=== PATIENT | male | born 1930 | race Two or more races ===

== ENCOUNTER 2018-10-15 12:02 | Day surgery (SDC) | payer OTHER, MEDICARE ==
[2018-10-15] MEDS ORDERED: hydrALAzine 20 MG INJ (19:55)
[2018-10-15] MEDS: hydrALAzine 20 MG INJ IV (19:56)
[2018-10-15] MEDS ORDERED: MIDAZOLAM 1 MG/ML 2 ML INJ IV (20:00)
[2018-10-15] MEDS ORDERED: DIPHENHYDRAMINE 50 MG INJ IV (20:00)
[2018-10-15] MEDS ORDERED: LABETALOL HCL 20MG INJ IV (20:00)
[2018-10-15] MEDS ORDERED: EPHEDrine 25 MG/5 ML SYG IV (20:00)
[2018-10-15] MEDS ORDERED: ALBUTEROL 0.083% (NEB) 2.5 MG/3 ML AMP HHN (20:00)
[2018-10-15] MEDS ORDERED: FENTAnyl 50 MCG/ML VIAL IV ×2 (20:00)
== END 2018-10-15 20:30 | disposition other institution (70) ==
LOC: GIL 12:02 → SDS 12:02 → GIL 20:30
DX: K94.23 Gastrostomy malfunction (principal); Y84.8 Other medical procedures as the cause of abnormal reaction of the patient, or of later complication, without mention of misadventure at the time of the procedure; Y82.8 Other medical devices associated with adverse incidents; I13.2 Hypertensive heart and chronic kidney disease with heart failure and with stage 5 chronic kidney disease, or end stage renal disease; I50.9 Heart failure, unspecified; N18.6 End stage renal disease; Z99.2 Dependence on renal dialysis
CPT/HCPCS: 49446

== ENCOUNTER 2018-10-20 09:28 | Day surgery (SDC) | payer OTHER | END 2018-10-22 10:31 | LOC: SDS 10-22 10:31 | DX: I12.0 Hypertensive chronic kidney disease with stage 5 chronic kidney disease or end stage renal disease (principal); N18.6 End stage renal disease; J96.10 Chronic respiratory failure, unspecified whether with hypoxia or hypercapnia; R53.2 Functional quadriplegia | CPT/HCPCS: 36561; 86850; 86900; 86901; 86920; 94002 ==

== ENCOUNTER 2018-12-05 20:44 | Inpatient (IN) | payer MEDICARE, OTHER ==
[2018-12-05 20:55] LABS: WHITE BLOOD COUNT 10.2 10^3/ul (4.8-10.8)
[2018-12-05 20:55] LABS: ABNORMAL IP MESSAGE 1; HEMATOCRIT 21.7 % (42.0-52.0); MEAN CORPUSCULAR HEMOGLOBIN 31.2 pg (29.0-33.0); MEAN CORPUSCULAR HGB CONC 29.5 g/dl (32.0-37.0); MEAN CORPUSCULAR VOLUME 105.9 fl (82.0-101.0); MEAN PLATELET VOLUME 10.8 fl (7.4-10.4); PLATELET COUNT 151 10^3/UL (140-415); POSITIVE DIFF @See below; RED BLOOD COUNT 2.05 10^6/ul (4.70-6.10)
[2018-12-05] MEDS: AZTREONAM 1 GM/NS (PMX) 50 ML IVPB (21:08)
[2018-12-05] MEDS: SOD CHLORIDE 0.9% 1,000 ML IV (21:08)
[2018-12-05 21:11] LABS: ADD MAN DIFF? YES; HEMOGLOBIN 6.4 g/dl (14.0-18.0)
[2018-12-05 21:12] LABS: ALANINE AMINOTRANSFERASE 50 IU/L (13-69); ALBUMIN 3.1 g/dl (3.3-4.9); ALBUMIN/GLOBULIN RATIO 0.68; ALKALINE PHOSPHATASE 457 IU/L (42-121); ANION GAP 10 (5-13); ASPARTATE AMINO TRANSFERASE 80 IU/L (15-46); BILIRUBIN,INDIRECT 0.3 mg/dl (0-1.1); BILIRUBIN,TOTAL 0.3 mg/dl (0.2-1.3); BLOOD UREA NITROGEN 38 mg/dl (7-20); CARBON DIOXIDE 26 mmol/L (21-31); CHLORIDE 103 mmol/L (97-110); CREATININE 1.49 mg/dl (0.61-1.24); GLUCOSE 109 mg/dl (70-220); POTASSIUM 3.2 mmol/L (3.5-5.1); SODIUM 139 mmol/L (135-144); TOTAL PROTEIN 7.6 g/dl (6.1-8.1)
[2018-12-05 21:15] LABS: INR 1.21; PROTIME 15.4 Sec (11.9-14.9); PT RATIO 1.2
[2018-12-05 21:22] LABS: PARTIAL THROMBOPLASTIN TIME 110.2 Sec (23.0-35.0)
[2018-12-05 21:30] LABS: TROPONIN-I 0.406 ng/ml (0.000-0.120)
[2018-12-05] MEDS: SOD CHLORIDE 0.9% 0 ML IV (21:36)
[2018-12-05 21:47] LABS: ANISOCYTOSIS 2+ (0-0); BAND NEUTROPHILS #M 0.5 10^3/ul (0.0-0.6); BAND NEUTROPHILS % (M) 5 % (0-4); EOSINOPHILS % (M) 29 % (0-7); HYPOCHROMASIA 1+ (0-0); LYMPHOCYTES % (M) 10 % (15-51); MONOCYTE #M 0.3 10^3/ul (0.3-0.9); MONOCYTES % (M) 3 % (0-11); PLATELET ESTIMATE NORMAL; POLYCHROMASIA 2+ (0-0); SEG NEUT #M 5.5 10^3/ul (1.6-7.5); SEGMENTED NEUTROPHILS (M) % 53 % (39-77); SMUDGE%M 3 % (0-0)
[2018-12-05] MEDS: ASPIRIN 300 MG SUPP PR (21:58)
[2018-12-05] MEDS: VANCOMYCIN 1 GM (PMX) 250 ML IVPB (21:58)
[2018-12-05 22:14] LABS: IMMEDIATE SPIN CROSSMATCH 1 2
[2018-12-05] MEDS ORDERED: ACETAMINOPHEN 325 MG TAB PO (23:00)
[2018-12-05] MEDS ORDERED: ONDANSETRON 4 MG INJ IV ×2 (23:00)
[2018-12-05] MEDS ORDERED: NACL 0.9% 3 ML SYG IV (23:00)
[2018-12-05 23:57] LABS: LACTIC ACID 2.1 mmol/L (0.5-2.0)
[2018-12-06 02:48] LABS: LACTIC ACID 2.5 mmol/L (0.5-2.0)
[2018-12-06 05:58] LABS: ADD MAN DIFF? NO
[2018-12-06 06:04] LABS: BASOPHILS % 0.2 % (0.0-2.0); EOSINOPHILS # 1.2 10^3/ul (0.0-0.5); EOSINOPHILS % 8.7 % (0.0-7.0); HEMATOCRIT 23.5 % (42.0-52.0); HEMOGLOBIN 7.1 g/dl (14.0-18.0); LYMPHOCYTES # 1.2 10^3/ul (0.8-2.9); LYMPHOCYTES % 8.5 % (15.0-51.0); MEAN CORPUSCULAR HEMOGLOBIN 30.9 pg (29.0-33.0); MEAN CORPUSCULAR HGB CONC 30.2 g/dl (32.0-37.0); MEAN CORPUSCULAR VOLUME 102.2 fl (82.0-101.0); MEAN PLATELET VOLUME 10.7 fl (7.4-10.4); MONOCYTE # 1.2 10^3/ul (0.3-0.9); MONOCYTES % 8.6 % (0.0-11.0); NEUTROPHIL # 10.1 10^3/ul (1.6-7.5); NEUTROPHILS % 73.1 % (39.0-77.0); PLATELET COUNT 142 10^3/UL (140-415); RED CELL DISTRIBUTION WIDTH 19.4 % (11.5-14.5)
[2018-12-06 06:04] LABS: WHITE BLOOD COUNT 13.9 10^3/ul (4.8-10.8)
[2018-12-06 06:33] LABS: ALANINE AMINOTRANSFERASE 45 IU/L (13-69); ALBUMIN 2.9 g/dl (3.3-4.9); ALBUMIN/GLOBULIN RATIO 0.69; ALKALINE PHOSPHATASE 389 IU/L (42-121); ANION GAP 8 (5-13); ASPARTATE AMINO TRANSFERASE 71 IU/L (15-46); BILIRUBIN,INDIRECT 0.7 mg/dl (0-1.1); BILIRUBIN,TOTAL 0.7 mg/dl (0.2-1.3); BLOOD UREA NITROGEN 44 mg/dl (7-20); CALCIUM 9.1 mg/dl (8.4-10.2); CARBON DIOXIDE 26 mmol/L (21-31); CHLORIDE 105 mmol/L (97-110); CREATININE 1.66 mg/dl (0.61-1.24); GLUCOSE 61 mg/dl (70-220); POTASSIUM 3.3 mmol/L (3.5-5.1); SODIUM 139 mmol/L (135-144); TOTAL PROTEIN 7.1 g/dl (6.1-8.1)
[2018-12-06] MEDS: SOD CHLORIDE 0.9% 1,000 ML IV ×4 (06:52→23:02)
[2018-12-06 07:41] LABS: HEMOGLOBIN A1C 5.2 % (0-5.9)
[2018-12-06] MEDS: POTASSIUM CHLORIDE (SR) 20 MEQ TAB PO (10:27)
[2018-12-06] MEDS: FAMOTIDINE 20 MG INJ IV (12:05)
[2018-12-06] MEDS: POTASSIUM CHLORIDE 20 MEQ POWDER FOR ORAL SOLN GTB (12:05)
[2018-12-06 16:43] LABS: TROPONIN-I 0.256 ng/ml (0.000-0.120)
[2018-12-06] MEDS: ACETAMINOPHEN 325 MG TAB PO (20:52)
[2018-12-07 06:40] LABS: ABNORMAL IP MESSAGE 1; HEMOGLOBIN 7.3 g/dl (14.0-18.0); MEAN CORPUSCULAR HEMOGLOBIN 31.3 pg (29.0-33.0); MEAN CORPUSCULAR HGB CONC 31.7 g/dl (32.0-37.0); MEAN CORPUSCULAR VOLUME 98.7 fl (82.0-101.0); MEAN PLATELET VOLUME 10.9 fl (7.4-10.4); PLATELET COUNT 158 10^3/UL (140-415); POSITIVE DIFF @See below; RED BLOOD COUNT 2.33 10^6/ul (4.70-6.10); RED CELL DISTRIBUTION WIDTH 22.4 % (11.5-14.5)
[2018-12-07 06:40] LABS: WHITE BLOOD COUNT 9.9 10^3/ul (4.8-10.8)
[2018-12-07 06:42] LABS: ADD MAN DIFF? YES
[2018-12-07] MEDS: SOD CHLORIDE 0.9% 1,000 ML IV (06:53)
[2018-12-07 08:16] LABS: ANISOCYTOSIS 1+ (0-0); BAND NEUTROPHILS #M 0.2 10^3/ul (0.0-0.6); BAND NEUTROPHILS % (M) 3 % (0-4); EOSINOPHILS % (M) 2 % (0-7); GIANT THROMBO% (M) 4 % (0-0); LYMPHOCYTES #M 1.4 10^3/ul (0.8-2.9); LYMPHOCYTES % (M) 15 % (15-51); MONOCYTE #M 0.9 10^3/ul (0.3-0.9); MONOCYTES % (M) 10 % (0-11); PLATELET ESTIMATE NORMAL; POLYCHROMASIA 1+ (0-0); SEG NEUT #M 6.9 10^3/ul (1.6-7.5); SEGMENTED NEUTROPHILS (M) % 70 % (39-77); SMUDGE%M 17 % (0-0)
[2018-12-07] MEDS: MIDODRINE 5 MG TAB PO (09:00)
[2018-12-07] MEDS: FAMOTIDINE 20 MG INJ IV (09:35)
[2018-12-07] MEDS ORDERED: EPOETIN 4000 UNITS/ML VIAL (ONCOLOGY) SC (13:30)
[2018-12-07] MEDS ORDERED: COLLAGENASE 30 GM TUBE TOP (13:30)
[2018-12-07] MEDS ORDERED: COLLAGENASE 5 GM (UD JAR) TOP (14:00)
[2018-12-07] MEDS ORDERED: VANCOMYCIN HCL 250 MG/5ML POSYG PO (18:00)
[2018-12-07] MEDS: ALBUTEROL 0.083% (NEB) 2.5 MG/3 ML AMP NEB (19:57)
[2018-12-07] MEDS: ATORVASTATIN 20 MG TAB PO (21:00)
[2018-12-08] MEDS: ALBUTEROL 0.083% (NEB) 2.5 MG/3 ML AMP NEB ×4 (01:19→14:10)
[2018-12-08 05:54] LABS: ADD MAN DIFF? NO
[2018-12-08 06:05] LABS: BASOPHILS % 0.4 % (0.0-2.0); EOSINOPHILS # 0.9 10^3/ul (0.0-0.5); EOSINOPHILS % 10.3 % (0.0-7.0); HEMOGLOBIN 8.4 g/dl (14.0-18.0); LYMPHOCYTES # 1.6 10^3/ul (0.8-2.9); LYMPHOCYTES % 18.9 % (15.0-51.0); MEAN CORPUSCULAR HEMOGLOBIN 31.6 pg (29.0-33.0); MEAN CORPUSCULAR HGB CONC 32.3 g/dl (32.0-37.0); MEAN CORPUSCULAR VOLUME 97.7 fl (82.0-101.0); MEAN PLATELET VOLUME 10.6 fl (7.4-10.4); MONOCYTE # 0.9 10^3/ul (0.3-0.9); NEUTROPHIL # 5.1 10^3/ul (1.6-7.5); NEUTROPHILS % 59.5 % (39.0-77.0); PLATELET COUNT 167 10^3/UL (140-415); POSITIVE DIFF @See below; RED BLOOD COUNT 2.66 10^6/ul (4.70-6.10); RED CELL DISTRIBUTION WIDTH 21.9 % (11.5-14.5)
[2018-12-08 06:05] LABS: WHITE BLOOD COUNT 8.5 10^3/ul (4.8-10.8)
[2018-12-08 06:37] LABS: ANION GAP 10 (5-13); BLOOD UREA NITROGEN 64 mg/dl (7-20); CALCIUM 8.8 mg/dl (8.4-10.2); CARBON DIOXIDE 21 mmol/L (21-31); CHLORIDE 108 mmol/L (97-110); CREATININE 2.49 mg/dl (0.61-1.24); GLUCOSE 119 mg/dl (70-220); POTASSIUM 3.6 mmol/L (3.5-5.1); SODIUM 139 mmol/L (135-144)
[2018-12-08 08:02] LABS: ANISOCYTOSIS 2+ (0-0); BAND NEUTROPHILS #M 1.1 10^3/ul (0.0-0.6); BAND NEUTROPHILS % (M) 14 % (0-4); BASOPHILS % (M) 1 % (0-2); BURR CELLS 3+ (0-0); EOSINOPHILS % (M) 13 % (0-7); LYMPHOCYTES #M 0.5 10^3/ul (0.8-2.9); LYMPHOCYTES % (M) 7 % (15-51); MONOCYTE #M 0.2 10^3/ul (0.3-0.9); MONOCYTES % (M) 3 % (0-11); PLATELET ESTIMATE NORMAL; POIKILOCYTOSIS 3+ (0-0); POLYCHROMASIA 1+ (0-0); REACTIVE LYMPHOCYTES #M 0.8 10^3/ul (0.0-0.0); REACTIVE LYMPHOCYTES% (M) 10 % (0-0); SEG NEUT #M 4.5 10^3/ul (1.6-7.5); SEGMENTED NEUTROPHILS (M) % 52 % (39-77); SMUDGE%M 29 % (0-0)
[2018-12-08] MEDS: ZINC SULFATE 220 MG CAP GTB (10:31)
[2018-12-08] MEDS: FAMOTIDINE 20 MG INJ IV (10:32)
[2018-12-08] MEDS: MIDODRINE 5 MG TAB PO ×2 (13:00→17:00)
[2018-12-08 15:47] LABS: HEPATITIS B SURFACE ANTIGEN NEGATIVE (NEGATIVE)
[2018-12-08] MEDS: HEPARIN 1000 UNITS/ML 10 ML INJ CATHETER (16:51)
[2018-12-08] MEDS: ALBUMIN HUMAN 25% 50 ML IV (17:00)
[2018-12-08] MEDS: ATORVASTATIN 20 MG TAB PO (20:47)
[2018-12-08] MEDS: ALBUTEROL HFA 8 GM INHALER INH (21:52)
[2018-12-09] MEDS ORDERED: ALBUTEROL HFA 8 GM INHALER INH (01:00)
[2018-12-09] MEDS: ALBUTEROL HFA 8 GM INHALER INH ×6 (01:15→21:13)
[2018-12-09 05:48] LABS: ADD MAN DIFF? NO
[2018-12-09 05:52] LABS: WHITE BLOOD COUNT 6.2 10^3/ul (4.8-10.8)
[2018-12-09 05:52] LABS: BASOPHILS % 0.3 % (0.0-2.0); EOSINOPHILS # 0.9 10^3/ul (0.0-0.5); EOSINOPHILS % 14.8 % (0.0-7.0); HEMATOCRIT 25.3 % (42.0-52.0); HEMOGLOBIN 8.1 g/dl (14.0-18.0); LYMPHOCYTES % 15.8 % (15.0-51.0); MEAN CORPUSCULAR VOLUME 96.9 fl (82.0-101.0); MEAN PLATELET VOLUME 10.5 fl (7.4-10.4); MONOCYTE # 0.8 10^3/ul (0.3-0.9); MONOCYTES % 12.2 % (0.0-11.0); NEUTROPHIL # 3.5 10^3/ul (1.6-7.5); NEUTROPHILS % 56.1 % (39.0-77.0); PLATELET COUNT 169 10^3/UL (140-415); RED BLOOD COUNT 2.61 10^6/ul (4.70-6.10); RED CELL DISTRIBUTION WIDTH 21.9 % (11.5-14.5)
[2018-12-09 06:21] LABS: ANION GAP 8 (5-13); BLOOD UREA NITROGEN 46 mg/dl (7-20); CALCIUM 8.3 mg/dl (8.4-10.2); CARBON DIOXIDE 28 mmol/L (21-31); CHLORIDE 103 mmol/L (97-110); CREATININE 1.89 mg/dl (0.61-1.24); GLUCOSE 98 mg/dl (70-220); POTASSIUM 3.6 mmol/L (3.5-5.1); SODIUM 139 mmol/L (135-144)
[2018-12-09] MEDS: ZINC SULFATE 220 MG CAP GTB (09:09)
[2018-12-09] MEDS: FAMOTIDINE 20 MG INJ IV (09:09)
[2018-12-09] MEDS: MIDODRINE 5 MG TAB PO ×3 (09:09→16:41)
[2018-12-09] MEDS ORDERED: VANCOMYCIN IV PER PHARMACY XX (15:30)
[2018-12-09] MEDS: VANCOMYCIN 1.25 GM/NS 250 ML 250 ML IVPB (18:30)
[2018-12-09] MEDS: ATORVASTATIN 20 MG TAB PO (21:00)
[2018-12-10] MEDS: ALBUTEROL HFA 8 GM INHALER INH ×6 (01:58→20:58)
[2018-12-10 06:19] LABS: ADD MAN DIFF? NO
[2018-12-10 06:25] LABS: BASOPHILS % 0.4 % (0.0-2.0); EOSINOPHILS # 0.9 10^3/ul (0.0-0.5); EOSINOPHILS % 18.1 % (0.0-7.0); HEMATOCRIT 27.7 % (42.0-52.0); HEMOGLOBIN 8.7 g/dl (14.0-18.0); LYMPHOCYTES % 19.7 % (15.0-51.0); MEAN CORPUSCULAR HEMOGLOBIN 30.5 pg (29.0-33.0); MEAN CORPUSCULAR HGB CONC 31.4 g/dl (32.0-37.0); MEAN CORPUSCULAR VOLUME 97.2 fl (82.0-101.0); MEAN PLATELET VOLUME 10.4 fl (7.4-10.4); MONOCYTE # 0.7 10^3/ul (0.3-0.9); MONOCYTES % 13.9 % (0.0-11.0); NEUTROPHIL # 2.5 10^3/ul (1.6-7.5); NEUTROPHILS % 47.1 % (39.0-77.0); PLATELET COUNT 171 10^3/UL (140-415); RED BLOOD COUNT 2.85 10^6/ul (4.70-6.10); RED CELL DISTRIBUTION WIDTH 21.5 % (11.5-14.5)
[2018-12-10 06:25] LABS: WHITE BLOOD COUNT 5.2 10^3/ul (4.8-10.8)
[2018-12-10 06:49] LABS: ANION GAP 10 (5-13); BLOOD UREA NITROGEN 55 mg/dl (7-20); CALCIUM 8.5 mg/dl (8.4-10.2); CARBON DIOXIDE 27 mmol/L (21-31); CHLORIDE 102 mmol/L (97-110); CREATININE 2.31 mg/dl (0.61-1.24); GLUCOSE 106 mg/dl (70-220); POTASSIUM 3.6 mmol/L (3.5-5.1); SODIUM 139 mmol/L (135-144)
[2018-12-10] MEDS: FAMOTIDINE 20 MG INJ IV (08:35)
[2018-12-10] MEDS: ZINC SULFATE 220 MG CAP GTB (08:36)
[2018-12-10] MEDS: MIDODRINE 5 MG TAB PO ×3 (08:36→17:07)
[2018-12-10] MEDS: ALBUMIN HUMAN 25% 50 ML IV ×2 (10:56→11:32)
[2018-12-10] MEDS: HEPARIN 1000 UNITS/ML 10 ML INJ CATHETER (13:04)
[2018-12-10] MEDS: ATORVASTATIN 20 MG TAB PO (20:43)
[2018-12-11] MEDS: ALBUTEROL HFA 8 GM INHALER INH ×6 (00:54→21:35)
[2018-12-11 05:47] LABS: ADD MAN DIFF? NO
[2018-12-11 05:50] LABS: BASOPHILS % 0.4 % (0.0-2.0); EOSINOPHILS # 0.7 10^3/ul (0.0-0.5); EOSINOPHILS % 13.1 % (0.0-7.0); HEMATOCRIT 26.5 % (42.0-52.0); HEMOGLOBIN 8.1 g/dl (14.0-18.0); LYMPHOCYTES % 17.5 % (15.0-51.0); MEAN CORPUSCULAR HEMOGLOBIN 30.3 pg (29.0-33.0); MEAN CORPUSCULAR HGB CONC 30.6 g/dl (32.0-37.0); MEAN CORPUSCULAR VOLUME 99.3 fl (82.0-101.0); MEAN PLATELET VOLUME 10.4 fl (7.4-10.4); MONOCYTE # 0.7 10^3/ul (0.3-0.9); MONOCYTES % 12.7 % (0.0-11.0); NEUTROPHIL # 3.2 10^3/ul (1.6-7.5); NEUTROPHILS % 55.8 % (39.0-77.0); PLATELET COUNT 167 10^3/UL (140-415); RED BLOOD COUNT 2.67 10^6/ul (4.70-6.10); RED CELL DISTRIBUTION WIDTH 21.5 % (11.5-14.5)
[2018-12-11 05:50] LABS: WHITE BLOOD COUNT 5.7 10^3/ul (4.8-10.8)
[2018-12-11 06:20] LABS: VANCOMYCIN,RANDOM 15.4 ug/ml
[2018-12-11 06:30] LABS: MAGNESIUM 1.9 mg/dl (1.7-2.5)
[2018-12-11 06:30] LABS: PHOSPHORUS 2.8 mg/dl (2.5-4.9)
[2018-12-11 06:35] LABS: ALANINE AMINOTRANSFERASE 33 IU/L (13-69); ALBUMIN 2.8 g/dl (3.3-4.9); ALBUMIN/GLOBULIN RATIO 0.71; ALKALINE PHOSPHATASE 272 IU/L (42-121); ANION GAP 8 (5-13); ASPARTATE AMINO TRANSFERASE 51 IU/L (15-46); BILIRUBIN,INDIRECT 0.3 mg/dl (0-1.1); BILIRUBIN,TOTAL 0.3 mg/dl (0.2-1.3); BLOOD UREA NITROGEN 42 mg/dl (7-20); CALCIUM 8.3 mg/dl (8.4-10.2); CARBON DIOXIDE 29 mmol/L (21-31); CHLORIDE 101 mmol/L (97-110); CREATININE 1.73 mg/dl (0.61-1.24); GLUCOSE 101 mg/dl (70-220); POTASSIUM 3.8 mmol/L (3.5-5.1); SODIUM 138 mmol/L (135-144); TOTAL PROTEIN 6.7 g/dl (6.1-8.1)
[2018-12-11] MEDS: ZINC SULFATE 220 MG CAP GTB (09:02)
[2018-12-11] MEDS: MIDODRINE 5 MG TAB PO ×3 (09:03→17:10)
[2018-12-11] MEDS: FAMOTIDINE 20 MG INJ IV (09:03)
[2018-12-11 12:08] LABS: HEMATOCRIT 25.6 % (42.0-52.0)
[2018-12-11] MEDS: ATORVASTATIN 20 MG TAB PO (20:38)
[2018-12-11] MEDS: VANCOMYCIN 1 GM 250 ML IVPB (22:16)
[2018-12-12] MEDS: ALBUTEROL HFA 8 GM INHALER INH ×6 (01:16→20:04)
[2018-12-12 06:24] LABS: ADD MAN DIFF? NO
[2018-12-12 06:27] LABS: WHITE BLOOD COUNT 6.4 10^3/ul (4.8-10.8)
[2018-12-12 06:27] LABS: BASOPHILS % 0.3 % (0.0-2.0); EOSINOPHILS # 0.8 10^3/ul (0.0-0.5); EOSINOPHILS % 12.1 % (0.0-7.0); HEMATOCRIT 26.5 % (42.0-52.0); HEMOGLOBIN 8.3 g/dl (14.0-18.0); LYMPHOCYTES # 1.1 10^3/ul (0.8-2.9); LYMPHOCYTES % 17.8 % (15.0-51.0); MEAN CORPUSCULAR HEMOGLOBIN 31.1 pg (29.0-33.0); MEAN CORPUSCULAR HGB CONC 31.3 g/dl (32.0-37.0); MEAN CORPUSCULAR VOLUME 99.3 fl (82.0-101.0); MEAN PLATELET VOLUME 10.8 fl (7.4-10.4); MONOCYTE # 0.7 10^3/ul (0.3-0.9); MONOCYTES % 11.2 % (0.0-11.0); NEUTROPHIL # 3.7 10^3/ul (1.6-7.5); NEUTROPHILS % 57.8 % (39.0-77.0); PLATELET COUNT 178 10^3/UL (140-415); POSITIVE DIFF @See below; RED BLOOD COUNT 2.67 10^6/ul (4.70-6.10); RED CELL DISTRIBUTION WIDTH 21.2 % (11.5-14.5)
[2018-12-12 07:10] LABS: ALBUMIN 2.7 g/dl (3.3-4.9); ANION GAP 9 (5-13); BLOOD UREA NITROGEN 53 mg/dl (7-20); CALCIUM 8.4 mg/dl (8.4-10.2); CARBON DIOXIDE 28 mmol/L (21-31); CHLORIDE 100 mmol/L (97-110); CREATININE 2.15 mg/dl (0.61-1.24); GLUCOSE 100 mg/dl (70-220); POTASSIUM 3.8 mmol/L (3.5-5.1); SODIUM 137 mmol/L (135-144)
[2018-12-12] MEDS: FAMOTIDINE 20 MG TAB GTB (09:10)
[2018-12-12] MEDS: COLLAGENASE 5 GM (UD JAR) TOP (09:10)
[2018-12-12] MEDS: MIDODRINE 5 MG TAB PO ×3 (09:10→17:28)
[2018-12-12] MEDS: ZINC SULFATE 220 MG CAP GTB (09:10)
[2018-12-12] MEDS: DAKINS 0.0125%(1/40) 473 ML SOLUTION TP (09:23)
[2018-12-12 11:43] LABS: ANISOCYTOSIS 2+ (0-0); BAND NEUTROPHILS #M 0.8 10^3/ul (0.0-0.6); BAND NEUTROPHILS % (M) 13 % (0-4); BASOPHILS % (M) 1 % (0-2); BURR CELLS 1+ (0-0); EOSINOPHILS % (M) 15 % (0-7); GIANT THROMBO% (M) 2 % (0-0); LYMPHOCYTES #M 0.5 10^3/ul (0.8-2.9); LYMPHOCYTES % (M) 8 % (15-51); MONOCYTE #M 0.3 10^3/ul (0.3-0.9); MONOCYTES % (M) 6 % (0-11); PLATELET ESTIMATE NORMAL; POIKILOCYTOSIS 2+ (0-0); REACTIVE LYMPHOCYTES #M 0.5 10^3/ul (0.0-0.0); REACTIVE LYMPHOCYTES% (M) 8 % (0-0); SEG NEUT #M 3.2 10^3/ul (1.6-7.5); SEGMENTED NEUTROPHILS (M) % 49 % (39-77); SMUDGE%M 35 % (0-0)
[2018-12-12] MEDS: ALBUMIN HUMAN 25% 50 ML IV ×2 (15:36→17:32)
[2018-12-12] MEDS: HEPARIN 1000 UNITS/ML 10 ML INJ CATHETER (18:28)
[2018-12-12] MEDS: ATORVASTATIN 20 MG TAB PO (20:35)
[2018-12-13] MEDS: ALBUTEROL HFA 8 GM INHALER INH ×6 (00:38→21:11)
[2018-12-13] MEDS: ZINC SULFATE 220 MG CAP GTB (09:01)
[2018-12-13] MEDS: COLLAGENASE 5 GM (UD JAR) TOP (09:01)
[2018-12-13] MEDS: MIDODRINE 5 MG TAB PO ×3 (09:02→18:01)
[2018-12-13] MEDS: FAMOTIDINE 20 MG TAB GTB (09:02)
[2018-12-13] MEDS: DAKINS 0.0125%(1/40) 473 ML SOLUTION TP (09:02)
[2018-12-13] MEDS: ATORVASTATIN 20 MG TAB PO (21:29)
[2018-12-14] MEDS: ALBUTEROL HFA 8 GM INHALER INH ×6 (01:10→21:13)
[2018-12-14] MEDS: MUPIROCIN 2% 22 GM OINT TOP ×3 (02:20→22:45)
[2018-12-14] MEDS: DAKINS 0.0125%(1/40) 473 ML SOLUTION TP (09:35)
[2018-12-14] MEDS: COLLAGENASE 5 GM (UD JAR) TOP (09:35)
[2018-12-14] MEDS: ZINC SULFATE 220 MG CAP GTB (09:36)
[2018-12-14] MEDS: MIDODRINE 5 MG TAB PO ×3 (09:36→17:51)
[2018-12-14] MEDS: FAMOTIDINE 20 MG TAB GTB (09:36)
[2018-12-14] MEDS: ALBUMIN HUMAN 25% 50 ML IV ×2 (12:26→12:50)
[2018-12-14] MEDS ORDERED: EPOETIN ALFA-EPBX (NON-ESRD 10,000 UNIT/ML VIAL SC (13:30)
[2018-12-14] MEDS: HEPARIN 1000 UNITS/ML 10 ML INJ CATHETER (14:51)
[2018-12-14] MEDS: ATORVASTATIN 20 MG TAB PO (22:45)
[2018-12-14] MEDS: VANCOMYCIN 1 GM 250 ML IVPB (22:45)
[2018-12-15] MEDS: ALBUTEROL HFA 8 GM INHALER INH ×6 (01:09→21:04)
[2018-12-15] MEDS: MUPIROCIN 2% 22 GM OINT TOP ×2 (09:01→21:32)
[2018-12-15] MEDS: MIDODRINE 5 MG TAB PO ×3 (09:02→18:13)
[2018-12-15] MEDS: FAMOTIDINE 20 MG TAB GTB (09:03)
[2018-12-15] MEDS: COLLAGENASE 5 GM (UD JAR) TOP (09:03)
[2018-12-15] MEDS: ZINC SULFATE 220 MG CAP GTB (09:03)
[2018-12-15] MEDS: DAKINS 0.0125%(1/40) 473 ML SOLUTION TP (09:04)
[2018-12-15] MEDS ORDERED: GENTAMICIN IV PER PHARMACY XX (14:00)
[2018-12-15 14:50] LABS: LACTIC ACID 1.6 mmol/L (0.5-2.0)
[2018-12-15] MEDS: GENTAMICIN 150 MG in DEXTROSE 5% 100 ML IVPB (18:10)
[2018-12-15] MEDS: ATORVASTATIN 20 MG TAB PO (21:32)
[2018-12-16] MEDS: ALBUTEROL HFA 8 GM INHALER INH ×6 (01:12→20:00)
[2018-12-16 05:00] LABS: ADD MAN DIFF? NO
[2018-12-16 05:08] LABS: WHITE BLOOD COUNT 7.6 10^3/ul (4.8-10.8)
[2018-12-16 05:08] LABS: BASOPHILS % 0.1 % (0.0-2.0); EOSINOPHILS # 0.8 10^3/ul (0.0-0.5); EOSINOPHILS % 10.1 % (0.0-7.0); HEMATOCRIT 24.3 % (42.0-52.0); HEMOGLOBIN 7.5 g/dl (14.0-18.0); LYMPHOCYTES # 1.4 10^3/ul (0.8-2.9); LYMPHOCYTES % 18.3 % (15.0-51.0); MEAN CORPUSCULAR HGB CONC 30.9 g/dl (32.0-37.0); MEAN CORPUSCULAR VOLUME 100.4 fl (82.0-101.0); MEAN PLATELET VOLUME 11.1 fl (7.4-10.4); MONOCYTE # 0.9 10^3/ul (0.3-0.9); MONOCYTES % 11.5 % (0.0-11.0); NEUTROPHIL # 4.5 10^3/ul (1.6-7.5); NEUTROPHILS % 59.3 % (39.0-77.0); PLATELET COUNT 145 10^3/UL (140-415); POSITIVE DIFF @See below; RED BLOOD COUNT 2.42 10^6/ul (4.70-6.10); RED CELL DISTRIBUTION WIDTH 20.9 % (11.5-14.5)
[2018-12-16 05:22] LABS: ANION GAP 8 (5-13); BLOOD UREA NITROGEN 47 mg/dl (7-20); CALCIUM 8.5 mg/dl (8.4-10.2); CARBON DIOXIDE 30 mmol/L (21-31); CHLORIDE 101 mmol/L (97-110); CREATININE 1.94 mg/dl (0.61-1.24); GLUCOSE 94 mg/dl (70-220); POTASSIUM 3.5 mmol/L (3.5-5.1); SODIUM 139 mmol/L (135-144)
[2018-12-16 07:05] LABS: ANISOCYTOSIS 2+ (0-0); BAND NEUTROPHILS #M 0.6 10^3/ul (0.0-0.6); BAND NEUTROPHILS % (M) 8 % (0-4); EOSINOPHILS % (M) 13 % (0-7); HYPOCHROMASIA 1+ (0-0); LYMPHOCYTES #M 1.4 10^3/ul (0.8-2.9); LYMPHOCYTES % (M) 19 % (15-51); MONOCYTE #M 0.6 10^3/ul (0.3-0.9); MONOCYTES % (M) 9 % (0-11); PLATELET ESTIMATE NORMAL; PROMYELOCYTES % (M) 1 % (0-0); REACTIVE LYMPHOCYTES% (M) 1 % (0-0); SEG NEUT #M 3.8 10^3/ul (1.6-7.5); SEGMENTED NEUTROPHILS (M) % 49 % (39-77); SMUDGE%M 3 % (0-0); SPHEROCYTES 1+ (0-0)
[2018-12-16] MEDS: MUPIROCIN 2% 22 GM OINT TOP ×2 (08:53→22:49)
[2018-12-16] MEDS: ZINC SULFATE 220 MG CAP GTB (08:59)
[2018-12-16] MEDS: MIDODRINE 5 MG TAB PO ×3 (08:59→18:51)
[2018-12-16] MEDS: COLLAGENASE 5 GM (UD JAR) TOP (08:59)
[2018-12-16] MEDS: FAMOTIDINE 20 MG TAB GTB (08:59)
[2018-12-16] MEDS: DAKINS 0.0125%(1/40) 473 ML SOLUTION TP (09:00)
[2018-12-16] MEDS ORDERED: NORepinephrine 8MG/250 ML (PMX 250 ML (13:40)
[2018-12-16] MEDS ORDERED: GENTAMICIN 80 MG/NS (PMX) 50 ML IVPB (15:00)
[2018-12-16] MEDS: ATORVASTATIN 20 MG TAB PO (22:48)
[2018-12-17] MEDS: ALBUTEROL HFA 8 GM INHALER INH ×6 (00:35→21:15)
[2018-12-17 06:55] LABS: ADD MAN DIFF? NO
[2018-12-17 07:02] LABS: BASOPHILS % 0.3 % (0.0-2.0); EOSINOPHILS # 0.5 10^3/ul (0.0-0.5); EOSINOPHILS % 7.8 % (0.0-7.0); HEMATOCRIT 22.9 % (42.0-52.0); HEMOGLOBIN 7.2 g/dl (14.0-18.0); LYMPHOCYTES # 1.4 10^3/ul (0.8-2.9); LYMPHOCYTES % 20.7 % (15.0-51.0); MEAN CORPUSCULAR HEMOGLOBIN 31.3 pg (29.0-33.0); MEAN CORPUSCULAR HGB CONC 31.4 g/dl (32.0-37.0); MEAN CORPUSCULAR VOLUME 99.6 fl (82.0-101.0); MEAN PLATELET VOLUME 10.9 fl (7.4-10.4); MONOCYTE # 0.9 10^3/ul (0.3-0.9); MONOCYTES % 12.8 % (0.0-11.0); NEUTROPHIL # 3.9 10^3/ul (1.6-7.5); NEUTROPHILS % 57.7 % (39.0-77.0); PLATELET COUNT 155 10^3/UL (140-415); POSITIVE DIFF @See below; RED CELL DISTRIBUTION WIDTH 21.1 % (11.5-14.5)
[2018-12-17 07:02] LABS: WHITE BLOOD COUNT 6.8 10^3/ul (4.8-10.8)
[2018-12-17 07:11] LABS: FLD MN% 82.9 %; FLD PMN% 17.1 %; FLD RBC 5000 /uL; FLD WBC 216 /cmm
[2018-12-17 07:25] LABS: ANION GAP 9 (5-13); BLOOD UREA NITROGEN 58 mg/dl (7-20); CALCIUM 8.6 mg/dl (8.4-10.2); CARBON DIOXIDE 29 mmol/L (21-31); CHLORIDE 98 mmol/L (97-110); CREATININE 2.42 mg/dl (0.61-1.24); GLUCOSE 89 mg/dl (70-220); POTASSIUM 3.9 mmol/L (3.5-5.1); SODIUM 136 mmol/L (135-144)
[2018-12-17 07:46] LABS: FLUID LD 422 U/L; FLUID TYPE PLEURAL FLUID
[2018-12-17 07:50] LABS: FLD TYPE PLEURAL
[2018-12-17 07:51] LABS: FLD CLARITY HAZY; FLD COLOR YELLOW
[2018-12-17] MEDS: COLLAGENASE 5 GM (UD JAR) TOP (08:39)
[2018-12-17] MEDS: FAMOTIDINE 20 MG TAB GTB (08:39)
[2018-12-17] MEDS: MIDODRINE 5 MG TAB PO ×3 (08:39→17:00)
[2018-12-17] MEDS: MUPIROCIN 2% 22 GM OINT TOP ×2 (08:40→21:02)
[2018-12-17] MEDS: ZINC SULFATE 220 MG CAP GTB (08:40)
[2018-12-17] MEDS: DAKINS 0.0125%(1/40) 473 ML SOLUTION TP (08:43)
[2018-12-17 09:33] LABS: ANISOCYTOSIS 2+ (0-0); BAND NEUTROPHILS #M 0.8 10^3/ul (0.0-0.6); BAND NEUTROPHILS % (M) 13 % (0-4); BASOPHILS % (M) 1 % (0-2); EOSINOPHILS % (M) 9 % (0-7); GIANT THROMBO% (M) 2 % (0-0); LYMPHOCYTES #M 1.7 10^3/ul (0.8-2.9); LYMPHOCYTES % (M) 26 % (15-51); MONOCYTE #M 0.4 10^3/ul (0.3-0.9); MONOCYTES % (M) 7 % (0-11); PLATELET ESTIMATE NORMAL; POIKILOCYTOSIS 1+ (0-0); POLYCHROMASIA 1+ (0-0); REACTIVE LYMPHOCYTES #M 0.1 10^3/ul (0.0-0.0); REACTIVE LYMPHOCYTES% (M) 2 % (0-0); SEG NEUT #M 2.9 10^3/ul (1.6-7.5); SEGMENTED NEUTROPHILS (M) % 42 % (39-77); SMUDGE%M 16 % (0-0)
[2018-12-17] MEDS ORDERED: AMIKACIN IV PER PHARMACY XX (18:00)
[2018-12-17] MEDS: ATORVASTATIN 20 MG TAB PO (21:02)
[2018-12-17] MEDS: AMIKACIN 500 MG in SOD CHLORIDE 0.9% 100 ML IVPB (21:02)
[2018-12-17] MEDS: ALBUMIN HUMAN 25% 50 ML IV (22:59)
[2018-12-18] MEDS: ALBUTEROL HFA 8 GM INHALER INH ×5 (01:24→16:07)
[2018-12-18 06:31] LABS: ADD MAN DIFF? NO
[2018-12-18 06:35] LABS: WHITE BLOOD COUNT 7.2 10^3/ul (4.8-10.8)
[2018-12-18 06:35] LABS: BASOPHILS % 0.3 % (0.0-2.0); EOSINOPHILS # 0.5 10^3/ul (0.0-0.5); EOSINOPHILS % 6.7 % (0.0-7.0); HEMATOCRIT 23.3 % (42.0-52.0); HEMOGLOBIN 7.4 g/dl (14.0-18.0); LYMPHOCYTES # 1.7 10^3/ul (0.8-2.9); LYMPHOCYTES % 23.5 % (15.0-51.0); MEAN CORPUSCULAR HEMOGLOBIN 31.1 pg (29.0-33.0); MEAN CORPUSCULAR HGB CONC 31.8 g/dl (32.0-37.0); MEAN CORPUSCULAR VOLUME 97.9 fl (82.0-101.0); MEAN PLATELET VOLUME 10.7 fl (7.4-10.4); MONOCYTE # 1.1 10^3/ul (0.3-0.9); MONOCYTES % 14.9 % (0.0-11.0); NEUTROPHIL # 3.9 10^3/ul (1.6-7.5); NEUTROPHILS % 53.5 % (39.0-77.0); PLATELET COUNT 159 10^3/UL (140-415); POSITIVE DIFF @See below; RED BLOOD COUNT 2.38 10^6/ul (4.70-6.10); RED CELL DISTRIBUTION WIDTH 21.1 % (11.5-14.5)
[2018-12-18 07:23] LABS: ANION GAP 9 (5-13); BLOOD UREA NITROGEN 71 mg/dl (7-20); CALCIUM 8.7 mg/dl (8.4-10.2); CARBON DIOXIDE 28 mmol/L (21-31); CHLORIDE 99 mmol/L (97-110); CREATININE 2.79 mg/dl (0.61-1.24); GLUCOSE 80 mg/dl (70-220); POTASSIUM 4.1 mmol/L (3.5-5.1); SODIUM 136 mmol/L (135-144)
[2018-12-18 09:19] LABS: ANISOCYTOSIS 2+ (0-0); BAND NEUTROPHILS #M 0.5 10^3/ul (0.0-0.6); BAND NEUTROPHILS % (M) 7 % (0-4); BASOPHILS % (M) 1 % (0-2); EOSINOPHILS % (M) 11 % (0-7); GIANT THROMBO% (M) 2 % (0-0); HYPOCHROMASIA 1+ (0-0); LYMPHOCYTES #M 1.4 10^3/ul (0.8-2.9); LYMPHOCYTES % (M) 20 % (15-51); MONOCYTE #M 0.5 10^3/ul (0.3-0.9); MONOCYTES % (M) 7 % (0-11); MYELOCYTES #M 0.1 10^3/ul (0.0-0.0); MYELOCYTES % (M) 2 % (0-0); PLATELET ESTIMATE NORMAL; POLYCHROMASIA 1+ (0-0); PROMYELOCYTES % (M) 1 % (0-0); REACTIVE LYMPHOCYTES% (M) 1 % (0-0); SEG NEUT #M 3.6 10^3/ul (1.6-7.5); SEGMENTED NEUTROPHILS (M) % 50 % (39-77); SMUDGE%M 15 % (0-0); SPHEROCYTES 1+ (0-0)
[2018-12-18] MEDS: ZINC SULFATE 220 MG CAP GTB (10:12)
[2018-12-18] MEDS: MIDODRINE 5 MG TAB PO ×3 (10:12→18:52)
[2018-12-18] MEDS: FAMOTIDINE 20 MG TAB GTB (10:12)
[2018-12-18] MEDS: MUPIROCIN 2% 22 GM OINT TOP ×2 (10:13→21:59)
[2018-12-18] MEDS: DAKINS 0.0125%(1/40) 473 ML SOLUTION TP (10:13)
[2018-12-18] MEDS: COLLAGENASE 5 GM (UD JAR) TOP (10:13)
[2018-12-18] MEDS ORDERED: AMIKACIN 500 MG INJ INH ×2 (17:00)
[2018-12-18] MEDS ORDERED: LIDOCAINE 1% (MDV) 20 ML INJ (17:54)
[2018-12-18] MEDS: AMIKACIN 500 MG INJ INH ×2 (20:11→20:12)
[2018-12-18] MEDS: ATORVASTATIN 20 MG TAB PO (21:59)
[2018-12-18] MEDS ORDERED: AMIKACIN 350 MG in SOD CHLORIDE 0.9% 100 ML IVPB (22:00)
[2018-12-19] MEDS: ALBUTEROL HFA 8 GM INHALER INH ×7 (01:00→21:10)
[2018-12-19 06:25] LABS: ADD MAN DIFF? NO
[2018-12-19 06:40] LABS: BASOPHILS % 0.3 % (0.0-2.0); EOSINOPHILS # 0.7 10^3/ul (0.0-0.5); HEMATOCRIT 25.8 % (42.0-52.0); HEMOGLOBIN 7.9 g/dl (14.0-18.0); LYMPHOCYTES # 1.4 10^3/ul (0.8-2.9); LYMPHOCYTES % 20.6 % (15.0-51.0); MEAN CORPUSCULAR HGB CONC 30.6 g/dl (32.0-37.0); MEAN CORPUSCULAR VOLUME 98.1 fl (82.0-101.0); MEAN PLATELET VOLUME 10.8 fl (7.4-10.4); MONOCYTE # 1.1 10^3/ul (0.3-0.9); NEUTROPHIL # 3.5 10^3/ul (1.6-7.5); NEUTROPHILS % 51.9 % (39.0-77.0); PLATELET COUNT 156 10^3/UL (140-415); RED BLOOD COUNT 2.63 10^6/ul (4.70-6.10); RED CELL DISTRIBUTION WIDTH 20.9 % (11.5-14.5)
[2018-12-19 06:40] LABS: WHITE BLOOD COUNT 6.7 10^3/ul (4.8-10.8)
[2018-12-19 07:05] LABS: ANION GAP 9 (5-13); BLOOD UREA NITROGEN 87 mg/dl (7-20); CALCIUM 8.9 mg/dl (8.4-10.2); CARBON DIOXIDE 28 mmol/L (21-31); CHLORIDE 98 mmol/L (97-110); CREATININE 3.08 mg/dl (0.61-1.24); GLUCOSE 107 mg/dl (70-220); POTASSIUM 4.4 mmol/L (3.5-5.1); SODIUM 135 mmol/L (135-144)
[2018-12-19] MEDS: AMIKACIN 500 MG INJ INH (08:00)
[2018-12-19] MEDS: DAKINS 0.0125%(1/40) 473 ML SOLUTION TP (09:00)
[2018-12-19] MEDS: MUPIROCIN 2% 22 GM OINT TOP ×2 (09:00→21:32)
[2018-12-19] MEDS: COLLAGENASE 5 GM (UD JAR) TOP (10:14)
[2018-12-19] MEDS: ZINC SULFATE 220 MG CAP GTB (10:14)
[2018-12-19] MEDS: MIDODRINE 5 MG TAB PO ×3 (10:20→17:47)
[2018-12-19] MEDS: FAMOTIDINE 20 MG TAB GTB (10:20)
[2018-12-19] MEDS: COLISTIMETHATE (25 MG/ML INHAL SYG) NEB (21:14)
[2018-12-19] MEDS: ATORVASTATIN 20 MG TAB PO (21:31)
[2018-12-20] MEDS: ALBUTEROL HFA 8 GM INHALER INH ×6 (01:19→20:17)
[2018-12-20 06:05] LABS: ADD MAN DIFF? NO
[2018-12-20 06:08] LABS: BASOPHILS % 0.3 % (0.0-2.0); EOSINOPHILS # 0.8 10^3/ul (0.0-0.5); EOSINOPHILS % 11.9 % (0.0-7.0); HEMATOCRIT 25.1 % (42.0-52.0); HEMOGLOBIN 7.8 g/dl (14.0-18.0); LYMPHOCYTES # 1.6 10^3/ul (0.8-2.9); LYMPHOCYTES % 24.8 % (15.0-51.0); MEAN CORPUSCULAR HEMOGLOBIN 30.4 pg (29.0-33.0); MEAN CORPUSCULAR HGB CONC 31.1 g/dl (32.0-37.0); MEAN CORPUSCULAR VOLUME 97.7 fl (82.0-101.0); MEAN PLATELET VOLUME 10.7 fl (7.4-10.4); MONOCYTES % 14.7 % (0.0-11.0); NEUTROPHIL # 3.1 10^3/ul (1.6-7.5); NEUTROPHILS % 47.1 % (39.0-77.0); PLATELET COUNT 138 10^3/UL (140-415); RED BLOOD COUNT 2.57 10^6/ul (4.70-6.10); RED CELL DISTRIBUTION WIDTH 20.7 % (11.5-14.5)
[2018-12-20 06:08] LABS: WHITE BLOOD COUNT 6.5 10^3/ul (4.8-10.8)
[2018-12-20 06:42] LABS: ANION GAP 11 (5-13); BLOOD UREA NITROGEN 92 mg/dl (7-20); CARBON DIOXIDE 27 mmol/L (21-31); CHLORIDE 97 mmol/L (97-110); CREATININE 3.45 mg/dl (0.61-1.24); GLUCOSE 97 mg/dl (70-220); POTASSIUM 4.2 mmol/L (3.5-5.1); SODIUM 135 mmol/L (135-144)
[2018-12-20] MEDS: FAMOTIDINE 20 MG TAB GTB (09:26)
[2018-12-20] MEDS: DAKINS 0.0125%(1/40) 473 ML SOLUTION TP (09:27)
[2018-12-20] MEDS: COLLAGENASE 5 GM (UD JAR) TOP (09:27)
[2018-12-20] MEDS: MUPIROCIN 2% 22 GM OINT TOP ×2 (09:27→21:31)
[2018-12-20] MEDS: ZINC SULFATE 220 MG CAP GTB (09:27)
[2018-12-20] MEDS: MIDODRINE 5 MG TAB PO ×3 (09:27→17:11)
[2018-12-20] MEDS: ATORVASTATIN 20 MG TAB PO (21:30)
[2018-12-20] MEDS: VANCOMYCIN HCL 250 MG/5ML POSYG GTB (23:29)
[2018-12-20] MEDS ORDERED: VANCOMYCIN IV PER PHARMACY XX (23:30)
[2018-12-21] MEDS: VANCOMYCIN 1.5 GM/NS 250 ML 250 ML IVPB (00:10)
[2018-12-21] MEDS: ALBUTEROL HFA 8 GM INHALER INH ×6 (01:30→20:02)
[2018-12-21] MEDS: SOD CHLORIDE 0.9% 500 ML IV (05:30)
[2018-12-21] MEDS: VANCOMYCIN HCL 250 MG/5ML POSYG GTB ×3 (05:40→17:03)
[2018-12-21 05:49] LABS: ADD MAN DIFF? NO
[2018-12-21 05:56] LABS: BASOPHILS % 0.3 % (0.0-2.0); EOSINOPHILS # 0.8 10^3/ul (0.0-0.5); EOSINOPHILS % 11.5 % (0.0-7.0); HEMATOCRIT 24.5 % (42.0-52.0); HEMOGLOBIN 7.8 g/dl (14.0-18.0); LYMPHOCYTES # 1.2 10^3/ul (0.8-2.9); LYMPHOCYTES % 18.3 % (15.0-51.0); MEAN CORPUSCULAR HEMOGLOBIN 31.1 pg (29.0-33.0); MEAN CORPUSCULAR HGB CONC 31.8 g/dl (32.0-37.0); MEAN CORPUSCULAR VOLUME 97.6 fl (82.0-101.0); MEAN PLATELET VOLUME 11.8 fl (7.4-10.4); MONOCYTE # 0.8 10^3/ul (0.3-0.9); MONOCYTES % 12.2 % (0.0-11.0); NEUTROPHIL # 3.7 10^3/ul (1.6-7.5); NEUTROPHILS % 57.1 % (39.0-77.0); PLATELET COUNT 146 10^3/UL (140-415); RED BLOOD COUNT 2.51 10^6/ul (4.70-6.10); RED CELL DISTRIBUTION WIDTH 20.3 % (11.5-14.5)
[2018-12-21 05:56] LABS: WHITE BLOOD COUNT 6.6 10^3/ul (4.8-10.8)
[2018-12-21 06:31] LABS: ANION GAP 11 (5-13); BLOOD UREA NITROGEN 100 mg/dl (7-20); CALCIUM 9.1 mg/dl (8.4-10.2); CARBON DIOXIDE 27 mmol/L (21-31); CHLORIDE 96 mmol/L (97-110); GLUCOSE 115 mg/dl (70-220); POTASSIUM 4.6 mmol/L (3.5-5.1); SODIUM 134 mmol/L (135-144)
[2018-12-21] MEDS: DAKINS 0.0125%(1/40) 473 ML SOLUTION TP (08:22)
[2018-12-21] MEDS: COLLAGENASE 5 GM (UD JAR) TOP (08:22)
[2018-12-21] MEDS: MIDODRINE 5 MG TAB PO ×3 (08:23→16:42)
[2018-12-21] MEDS: FAMOTIDINE 20 MG TAB GTB (08:23)
[2018-12-21] MEDS: ZINC SULFATE 220 MG CAP GTB (08:23)
[2018-12-21] MEDS: EPOETIN ALFA-EPBX (ESRD) 10,000 UNIT/ML VIAL SC (16:43)
[2018-12-21] MEDS: ATORVASTATIN 20 MG TAB PO (20:54)
[2018-12-22] MEDS: VANCOMYCIN HCL 250 MG/5ML POSYG GTB ×4 (00:04→17:10)
[2018-12-22] MEDS: ALBUTEROL HFA 8 GM INHALER INH ×6 (01:17→21:15)
[2018-12-22 05:47] LABS: ADD MAN DIFF? NO
[2018-12-22 06:02] LABS: BASOPHILS % 0.2 % (0.0-2.0); EOSINOPHILS # 0.7 10^3/ul (0.0-0.5); EOSINOPHILS % 7.3 % (0.0-7.0); HEMATOCRIT 26.1 % (42.0-52.0); HEMOGLOBIN 8.2 g/dl (14.0-18.0); LYMPHOCYTES # 1.7 10^3/ul (0.8-2.9); LYMPHOCYTES % 18.9 % (15.0-51.0); MEAN CORPUSCULAR HEMOGLOBIN 30.7 pg (29.0-33.0); MEAN CORPUSCULAR HGB CONC 31.4 g/dl (32.0-37.0); MEAN CORPUSCULAR VOLUME 97.8 fl (82.0-101.0); MEAN PLATELET VOLUME 11.2 fl (7.4-10.4); MONOCYTE # 0.8 10^3/ul (0.3-0.9); MONOCYTES % 8.3 % (0.0-11.0); NEUTROPHIL # 5.8 10^3/ul (1.6-7.5); NEUTROPHILS % 64.6 % (39.0-77.0); PLATELET COUNT 139 10^3/UL (140-415); RED BLOOD COUNT 2.67 10^6/ul (4.70-6.10); RED CELL DISTRIBUTION WIDTH 20.4 % (11.5-14.5)
[2018-12-22 06:42] LABS: ANION GAP 11 (5-13); BLOOD UREA NITROGEN 103 mg/dl (7-20); CALCIUM 8.8 mg/dl (8.4-10.2); CARBON DIOXIDE 27 mmol/L (21-31); CHLORIDE 98 mmol/L (97-110); CREATININE 3.72 mg/dl (0.61-1.24); GLUCOSE 130 mg/dl (70-220); MAGNESIUM 2.1 mg/dl (1.7-2.5); PHOSPHORUS 3.8 mg/dl (2.5-4.9); POTASSIUM 4.4 mmol/L (3.5-5.1); SODIUM 136 mmol/L (135-144)
[2018-12-22] MEDS: COLLAGENASE 5 GM (UD JAR) TOP (08:52)
[2018-12-22] MEDS: FAMOTIDINE 20 MG TAB GTB (08:52)
[2018-12-22] MEDS: ZINC SULFATE 220 MG CAP GTB (08:52)
[2018-12-22] MEDS: DAKINS 0.0125%(1/40) 473 ML SOLUTION TP (08:52)
[2018-12-22] MEDS: MIDODRINE 5 MG TAB PO ×3 (08:52→17:10)
[2018-12-22] MEDS: ATORVASTATIN 20 MG TAB PO (21:38)
[2018-12-23] MEDS: VANCOMYCIN HCL 250 MG/5ML POSYG GTB ×4 (00:07→19:01)
[2018-12-23] MEDS: ALBUTEROL HFA 8 GM INHALER INH ×6 (01:10→21:21)
[2018-12-23 06:34] LABS: WHITE BLOOD COUNT 9.2 10^3/ul (4.8-10.8)
[2018-12-23 06:34] LABS: HEMOGLOBIN 8.3 g/dl (14.0-18.0); MEAN CORPUSCULAR HEMOGLOBIN 31.1 pg (29.0-33.0); MEAN CORPUSCULAR HGB CONC 31.9 g/dl (32.0-37.0); MEAN CORPUSCULAR VOLUME 97.4 fl (82.0-101.0); MEAN PLATELET VOLUME 11.8 fl (7.4-10.4); PLATELET COUNT 108 10^3/UL (140-415); POSITIVE DIFF @See below; RED BLOOD COUNT 2.67 10^6/ul (4.70-6.10); RED CELL DISTRIBUTION WIDTH 20.4 % (11.5-14.5)
[2018-12-23 06:55] LABS: ANION GAP 12 (5-13); BLOOD UREA NITROGEN 113 mg/dl (7-20); CALCIUM 8.8 mg/dl (8.4-10.2); CARBON DIOXIDE 25 mmol/L (21-31); CHLORIDE 97 mmol/L (97-110); CREATININE 3.85 mg/dl (0.61-1.24); GLUCOSE 121 mg/dl (70-220); MAGNESIUM 2.1 mg/dl (1.7-2.5); PHOSPHORUS 3.9 mg/dl (2.5-4.9); POTASSIUM 4.5 mmol/L (3.5-5.1); SODIUM 134 mmol/L (135-144)
[2018-12-23 06:56] LABS: VANCOMYCIN,RANDOM 25.4 ug/ml
[2018-12-23 07:12] LABS: ADD MAN DIFF? YES
[2018-12-23 08:59] LABS: ANISOCYTOSIS 2+ (0-0); BAND NEUTROPHILS #M 1.4 10^3/ul (0.0-0.6); BAND NEUTROPHILS % (M) 16 % (0-4); BURR CELLS 1+ (0-0); EOSINOPHILS % (M) 3 % (0-7); GIANT THROMBO% (M) 1 % (0-0); LYMPHOCYTES #M 1.6 10^3/ul (0.8-2.9); LYMPHOCYTES % (M) 18 % (15-51); MONOCYTE #M 0.6 10^3/ul (0.3-0.9); MONOCYTES % (M) 7 % (0-11); PLATELET ESTIMATE DECREASED; POIKILOCYTOSIS 1+ (0-0); SEG NEUT #M 5.3 10^3/ul (1.6-7.5); SEGMENTED NEUTROPHILS (M) % 56 % (39-77); SMUDGE%M 17 % (0-0); TEAR DROP CELLS 1+ (0-0)
[2018-12-23] MEDS: COLLAGENASE 5 GM (UD JAR) TOP (09:21)
[2018-12-23] MEDS: FAMOTIDINE 20 MG TAB GTB (09:21)
[2018-12-23] MEDS: ZINC SULFATE 220 MG CAP GTB (09:21)
[2018-12-23] MEDS: MIDODRINE 5 MG TAB PO ×3 (09:22→19:05)
[2018-12-23] MEDS: DAKINS 0.0125%(1/40) 473 ML SOLUTION TP (09:22)
[2018-12-23] MEDS: EPOETIN ALFA-EPBX (ESRD) 10,000 UNIT/ML VIAL SC (19:02)
[2018-12-23] MEDS: ATORVASTATIN 20 MG TAB PO (22:03)
[2018-12-24] MEDS: LIDOCAINE 1% (MDV) 20 ML INJ (00:09)
[2018-12-24] MEDS: HEPARIN 1000 UNITS/ML 10 ML INJ (00:09)
[2018-12-24] MEDS: VANCOMYCIN HCL 250 MG/5ML POSYG GTB ×4 (00:18→17:18)
[2018-12-24] MEDS: ALBUTEROL HFA 8 GM INHALER INH ×6 (01:07→21:00)
[2018-12-24] MEDS: morphine 2 MG INJ IV ×3 (01:51→23:35)
[2018-12-24 02:05] LABS: AADO2 Arterial 202.2 mmHg (7.0-24.0); Allen Test ACCEPTAB; Arterial Base Excess -2.5 mmol/L (-3.0-3); Arterial Blood Gas Oxygen Sat 97.3 mmHG (95.0-100.0); Arterial COHb 0.5 % (0.0-3.0); Arterial Fraction of Oxyhgb 96.3 % (93.0-99.0); Arterial MetHb 0.5 % (0.0-1.5); Arterial pCO2 43.4 mmhg (35-45); MODE VENT - AC; Site Right Radial
[2018-12-24] MEDS: ACETAMINOPHEN 650MG/20.3ML CUP GTB (06:40)
[2018-12-24] MEDS: ZINC SULFATE 220 MG CAP GTB (08:41)
[2018-12-24] MEDS: COLLAGENASE 5 GM (UD JAR) TOP (08:41)
[2018-12-24] MEDS: FAMOTIDINE 20 MG TAB GTB (08:41)
[2018-12-24] MEDS: MIDODRINE 5 MG TAB PO ×3 (08:42→17:18)
[2018-12-24] MEDS: DAKINS 0.0125%(1/40) 473 ML SOLUTION TP (08:42)
[2018-12-24] MEDS: ALBUMIN HUMAN 25% 100 ML IV ×2 (11:18→12:18)
[2018-12-24] MEDS: VANCOMYCIN 1 GM 250 ML IVPB (14:41)
[2018-12-24] MEDS: ATORVASTATIN 20 MG TAB PO (22:16)
[2018-12-25] MEDS: VANCOMYCIN HCL 250 MG/5ML POSYG GTB ×4 (00:27→18:33)
[2018-12-25] MEDS: ALBUTEROL HFA 8 GM INHALER INH ×6 (01:50→20:14)
[2018-12-25 06:26] LABS: ADD MAN DIFF? NO
[2018-12-25 06:33] LABS: ABNORMAL IP MESSAGE 1; BASOPHILS % 0.3 % (0.0-2.0); EOSINOPHILS # 0.4 10^3/ul (0.0-0.5); EOSINOPHILS % 4.9 % (0.0-7.0); HEMATOCRIT 21.9 % (42.0-52.0); LYMPHOCYTES # 1.1 10^3/ul (0.8-2.9); LYMPHOCYTES % 13.8 % (15.0-51.0); MEAN CORPUSCULAR HEMOGLOBIN 30.8 pg (29.0-33.0); MEAN CORPUSCULAR HGB CONC 31.1 g/dl (32.0-37.0); MEAN CORPUSCULAR VOLUME 99.1 fl (82.0-101.0); MEAN PLATELET VOLUME 11.5 fl (7.4-10.4); MONOCYTE # 0.9 10^3/ul (0.3-0.9); NEUTROPHIL # 5.4 10^3/ul (1.6-7.5); NEUTROPHILS % 69.4 % (39.0-77.0); PLATELET COUNT 89 10^3/UL (140-415); POSITIVE DIFF @See below; RED BLOOD COUNT 2.21 10^6/ul (4.70-6.10); RED CELL DISTRIBUTION WIDTH 21.3 % (11.5-14.5)
[2018-12-25 06:33] LABS: WHITE BLOOD COUNT 7.8 10^3/ul (4.8-10.8)
[2018-12-25 06:57] LABS: HEMOGLOBIN 6.8 g/dl (14.0-18.0); PATH REVIEW? YES
[2018-12-25 07:04] LABS: ANION GAP 11 (5-13); BLOOD UREA NITROGEN 74 mg/dl (7-20); CALCIUM 8.4 mg/dl (8.4-10.2); CARBON DIOXIDE 27 mmol/L (21-31); CHLORIDE 101 mmol/L (97-110); CREATININE 2.75 mg/dl (0.61-1.24); GLUCOSE 101 mg/dl (70-220); MAGNESIUM 2.1 mg/dl (1.7-2.5); PHOSPHORUS 2.9 mg/dl (2.5-4.9); POTASSIUM 4.2 mmol/L (3.5-5.1); SODIUM 139 mmol/L (135-144)
[2018-12-25] MEDS: FAMOTIDINE 20 MG TAB GTB (08:26)
[2018-12-25] MEDS: COLLAGENASE 5 GM (UD JAR) TOP (08:26)
[2018-12-25] MEDS: ZINC SULFATE 220 MG CAP GTB (08:26)
[2018-12-25] MEDS: MIDODRINE 5 MG TAB PO ×3 (08:26→17:18)
[2018-12-25] MEDS: DAKINS 0.0125%(1/40) 473 ML SOLUTION TP (08:27)
[2018-12-25 08:39] LABS: IRON 82 ug/dl (35-150)
[2018-12-25 08:48] LABS: % IRON SATURATION 49 % SAT (22-52); TOTAL IRON BINDING CAPACITY 167 ug/dl (241-421)
[2018-12-25] MEDS ORDERED: MIDODRINE 5 MG TAB PO (09:00)
[2018-12-25 09:10] LABS: ANISOCYTOSIS 2+ (0-0); BAND NEUTROPHILS #M 2.1 10^3/ul (0.0-0.6); BAND NEUTROPHILS % (M) 27 % (0-4); BASOPHILS % (M) 1 % (0-2); EOSINOPHILS % (M) 6 % (0-7); GIANT THROMBO% (M) 3 % (0-0); HYPOCHROMASIA 2+ (0-0); LYMPHOCYTES #M 1.1 10^3/ul (0.8-2.9); LYMPHOCYTES % (M) 15 % (15-51); MONOCYTE #M 0.6 10^3/ul (0.3-0.9); MONOCYTES % (M) 8 % (0-11); PLATELET ESTIMATE DECREASED; POLYCHROMASIA 1+ (0-0); SEG NEUT #M 3.5 10^3/ul (1.6-7.5); SEGMENTED NEUTROPHILS (M) % 43 % (39-77); SMUDGE%M 14 % (0-0); TARGET CELLS 1+ (0-0)
[2018-12-25] MEDS: EPOETIN ALFA-EPBX (ESRD) 10,000 UNIT/ML VIAL SC (17:18)
[2018-12-25] MEDS: ATORVASTATIN 20 MG TAB PO (21:52)
[2018-12-26] MEDS: VANCOMYCIN HCL 250 MG/5ML POSYG GTB ×4 (00:46→18:04)
[2018-12-26] MEDS: ALBUTEROL HFA 8 GM INHALER INH ×6 (00:48→21:41)
[2018-12-26 06:06] LABS: ADD MAN DIFF? NO
[2018-12-26 06:57] LABS: CARBON DIOXIDE 26 mmol/L (21-31); CHLORIDE 99 mmol/L (97-110); POTASSIUM 4.6 mmol/L (3.5-5.1); SODIUM 136 mmol/L (135-144)
[2018-12-26 06:58] LABS: ANION GAP 11 (5-13); BLOOD UREA NITROGEN 86 mg/dl (7-20); CALCIUM 8.4 mg/dl (8.4-10.2); CREATININE 2.95 mg/dl (0.61-1.24); GLUCOSE 99 mg/dl (70-220); MAGNESIUM 2.2 mg/dl (1.7-2.5); PHOSPHORUS 3.4 mg/dl (2.5-4.9)
[2018-12-26] MEDS: MIDODRINE 5 MG TAB PO ×3 (07:29→18:04)
[2018-12-26] MEDS: ALBUMIN HUMAN 25% 100 ML IV ×2 (08:00→08:33)
[2018-12-26 08:13] LABS: ABNORMAL IP MESSAGE 1; BASOPHILS % 0.1 % (0.0-2.0); EOSINOPHILS # 0.7 10^3/ul (0.0-0.5); EOSINOPHILS % 8.1 % (0.0-7.0); HEMATOCRIT 24.5 % (42.0-52.0); HEMOGLOBIN 7.8 g/dl (14.0-18.0); LYMPHOCYTES # 1.5 10^3/ul (0.8-2.9); LYMPHOCYTES % 18.5 % (15.0-51.0); MEAN CORPUSCULAR HEMOGLOBIN 30.8 pg (29.0-33.0); MEAN CORPUSCULAR HGB CONC 31.8 g/dl (32.0-37.0); MEAN CORPUSCULAR VOLUME 96.8 fl (82.0-101.0); MEAN PLATELET VOLUME 11.8 fl (7.4-10.4); MONOCYTE # 1.1 10^3/ul (0.3-0.9); NEUTROPHIL # 4.9 10^3/ul (1.6-7.5); NEUTROPHILS % 59.5 % (39.0-77.0); PLATELET COUNT 99 10^3/UL (140-415); POSITIVE DIFF @See below; RED BLOOD COUNT 2.53 10^6/ul (4.70-6.10); RED CELL DISTRIBUTION WIDTH 21.2 % (11.5-14.5)
[2018-12-26 08:13] LABS: WHITE BLOOD COUNT 8.3 10^3/ul (4.8-10.8)
[2018-12-26 09:12] LABS: IMMEDIATE SPIN CROSSMATCH 1 1
[2018-12-26] MEDS: ZINC SULFATE 220 MG CAP GTB (11:39)
[2018-12-26] MEDS: FAMOTIDINE 20 MG TAB GTB (11:39)
[2018-12-26] MEDS: DAKINS 0.0125%(1/40) 473 ML SOLUTION TP (11:40)
[2018-12-26] MEDS: COLLAGENASE 5 GM (UD JAR) TOP (11:40)
[2018-12-26] MEDS: ATORVASTATIN 20 MG TAB PO (21:30)
[2018-12-27] MEDS: VANCOMYCIN HCL 250 MG/5ML POSYG GTB ×4 (00:45→17:12)
[2018-12-27] MEDS: ALBUTEROL HFA 8 GM INHALER INH ×6 (01:14→21:16)
[2018-12-27] MEDS: FAMOTIDINE 20 MG TAB GTB (08:48)
[2018-12-27] MEDS: MIDODRINE 5 MG TAB PO ×3 (08:48→17:12)
[2018-12-27] MEDS: ZINC SULFATE 220 MG CAP GTB (08:48)
[2018-12-27] MEDS: COLLAGENASE 5 GM (UD JAR) TOP (08:48)
[2018-12-27] MEDS: DAKINS 0.0125%(1/40) 473 ML SOLUTION TP (08:49)
[2018-12-27] MEDS: ATORVASTATIN 20 MG TAB PO (21:09)
[2018-12-28] MEDS: VANCOMYCIN HCL 250 MG/5ML POSYG GTB ×4 (00:13→17:12)
[2018-12-28] MEDS: ALBUTEROL HFA 8 GM INHALER INH ×6 (01:12→19:51)
[2018-12-28 06:43] LABS: ADD MAN DIFF? NO
[2018-12-28 07:01] LABS: BASOPHILS % 0.3 % (0.0-2.0); EOSINOPHILS # 1.3 10^3/ul (0.0-0.5); EOSINOPHILS % 14.5 % (0.0-7.0); HEMATOCRIT 26.3 % (42.0-52.0); HEMOGLOBIN 8.4 g/dl (14.0-18.0); LYMPHOCYTES # 1.4 10^3/ul (0.8-2.9); LYMPHOCYTES % 15.8 % (15.0-51.0); MEAN CORPUSCULAR HEMOGLOBIN 30.2 pg (29.0-33.0); MEAN CORPUSCULAR HGB CONC 31.9 g/dl (32.0-37.0); MEAN CORPUSCULAR VOLUME 94.6 fl (82.0-101.0); MONOCYTE # 1.1 10^3/ul (0.3-0.9); MONOCYTES % 12.9 % (0.0-11.0); NEUTROPHIL # 4.9 10^3/ul (1.6-7.5); NEUTROPHILS % 55.8 % (39.0-77.0); PLATELET COUNT 100 10^3/UL (140-415); RED BLOOD COUNT 2.78 10^6/ul (4.70-6.10); RED CELL DISTRIBUTION WIDTH 21.7 % (11.5-14.5)
[2018-12-28 07:01] LABS: WHITE BLOOD COUNT 8.8 10^3/ul (4.8-10.8)
[2018-12-28 07:09] LABS: ANION GAP 10 (5-13); BLOOD UREA NITROGEN 71 mg/dl (7-20); CALCIUM 8.7 mg/dl (8.4-10.2); CARBON DIOXIDE 27 mmol/L (21-31); CHLORIDE 101 mmol/L (97-110); CREATININE 2.51 mg/dl (0.61-1.24); GLUCOSE 100 mg/dl (70-220); POTASSIUM 4.4 mmol/L (3.5-5.1); SODIUM 138 mmol/L (135-144)
[2018-12-28] MEDS: ZINC SULFATE 220 MG CAP GTB (08:23)
[2018-12-28] MEDS: COLLAGENASE 5 GM (UD JAR) TOP (08:23)
[2018-12-28] MEDS: MIDODRINE 5 MG TAB PO ×3 (08:23→17:12)
[2018-12-28] MEDS: FAMOTIDINE 20 MG TAB GTB (08:23)
[2018-12-28] MEDS: DAKINS 0.0125%(1/40) 473 ML SOLUTION TP (08:23)
[2018-12-28] MEDS: ALBUMIN HUMAN 25% 100 ML IV ×2 (14:15→15:27)
[2018-12-28] MEDS: EPOETIN ALFA-EPBX (ESRD) 10,000 UNIT/ML VIAL SC (17:13)
[2018-12-28] MEDS: ATORVASTATIN 20 MG TAB PO (21:27)
[2018-12-29] MEDS ORDERED: EPINEPHrine 0.1 MG/ML SYG
[2018-12-29] MEDS: VANCOMYCIN HCL 250 MG/5ML POSYG GTB ×4 (00:20→17:02)
[2018-12-29] MEDS: ALBUTEROL HFA 8 GM INHALER INH ×6 (01:31→21:26)
[2018-12-29] MEDS: COLLAGENASE 5 GM (UD JAR) TOP (08:26)
[2018-12-29] MEDS: MIDODRINE 5 MG TAB PO ×3 (08:26→17:02)
[2018-12-29] MEDS: FAMOTIDINE 20 MG TAB GTB (08:26)
[2018-12-29] MEDS: ZINC SULFATE 220 MG CAP GTB (08:26)
[2018-12-29] MEDS: DAKINS 0.0125%(1/40) 473 ML SOLUTION TP (08:27)
[2018-12-29] MEDS: ATORVASTATIN 20 MG TAB PO (20:54)
[2018-12-30] MEDS: ACETAMINOPHEN 650MG/20.3ML CUP GTB (00:41)
[2018-12-30] MEDS: VANCOMYCIN HCL 250 MG/5ML POSYG GTB ×4 (00:41→18:53)
[2018-12-30] MEDS: ALBUTEROL HFA 8 GM INHALER INH ×6 (01:04→21:14)
[2018-12-30] MEDS: COLLAGENASE 5 GM (UD JAR) TOP (10:52)
[2018-12-30] MEDS: FAMOTIDINE 20 MG TAB GTB (10:58)
[2018-12-30] MEDS: ZINC SULFATE 220 MG CAP GTB (10:58)
[2018-12-30] MEDS: MIDODRINE 5 MG TAB PO ×3 (10:58→18:56)
[2018-12-30] MEDS: DAKINS 0.0125%(1/40) 473 ML SOLUTION TP (10:59)
[2018-12-30] MEDS: EPOETIN ALFA-EPBX (ESRD) 10,000 UNIT/ML VIAL SC (18:54)
[2018-12-30] MEDS: ATORVASTATIN 20 MG TAB PO (21:07)
[2018-12-30] MEDS ORDERED: NORepinephrine 8MG/250 ML (PMX 250 ML (21:30)
[2018-12-30] MEDS: NORepinephrine 8MG/250 ML (PMX 250 ML IV (22:13)
[2018-12-31] MEDS: VANCOMYCIN HCL 250 MG/5ML POSYG GTB ×5 (00:25→23:19)
[2018-12-31] MEDS: traMADol 50 MG TAB GTB (00:53)
[2018-12-31] MEDS: ALBUTEROL HFA 8 GM INHALER INH ×5 (01:04→20:04)
[2018-12-31] MEDS: NORepinephrine 8MG/250 ML (PMX 250 ML IV (05:17)
[2018-12-31 05:26] LABS: ABNORMAL IP MESSAGE 1; HEMATOCRIT 30.6 % (42.0-52.0); HEMOGLOBIN 9.3 g/dl (14.0-18.0); MEAN CORPUSCULAR HGB CONC 30.4 g/dl (32.0-37.0); MEAN PLATELET VOLUME 12.7 fl (7.4-10.4); PLATELET COUNT 43 10^3/UL (140-415); POSITIVE DIFF @See below; RED CELL DISTRIBUTION WIDTH 23.6 % (11.5-14.5)
[2018-12-31 05:26] LABS: WHITE BLOOD COUNT 23.8 10^3/ul (4.8-10.8)
[2018-12-31 05:47] LABS: ANION GAP 20 (5-13); BLOOD UREA NITROGEN 64 mg/dl (7-20); CALCIUM 9.4 mg/dl (8.4-10.2); CARBON DIOXIDE 17 mmol/L (21-31); CHLORIDE 98 mmol/L (97-110); CREATININE 2.54 mg/dl (0.61-1.24); MAGNESIUM 2.1 mg/dl (1.7-2.5); POTASSIUM 3.7 mmol/L (3.5-5.1); SODIUM 135 mmol/L (135-144)
[2018-12-31 05:50] LABS: GLUCOSE 22 mg/dl (70-220)
[2018-12-31] MEDS ORDERED: DEXTROSE 50% 50 ML SYRINGE (05:51)
[2018-12-31] MEDS: DEXTROSE 50% 50 ML SYRINGE IV ×4 (05:57→18:38)
[2018-12-31 06:17] LABS: ADD MAN DIFF? YES
[2018-12-31] MEDS: morphine 2 MG INJ IV ×2 (06:37→18:20)
[2018-12-31] MEDS: MIDODRINE 5 MG TAB PO ×3 (08:45→18:18)
[2018-12-31] MEDS: DEXTROSE 10% 1,000 ML IV (08:45)
[2018-12-31] MEDS: COLLAGENASE 5 GM (UD JAR) TOP ×2 (08:46→18:20)
[2018-12-31] MEDS: FAMOTIDINE 20 MG TAB GTB (08:46)
[2018-12-31] MEDS: ZINC SULFATE 220 MG CAP GTB (08:46)
[2018-12-31] MEDS: PHENYLephrine 20MG IN 250 ML 250 ML IV (08:47)
[2018-12-31] MEDS ORDERED: VANCOMYCIN IV PER PHARMACY XX (09:00)
[2018-12-31 09:18] LABS: ANISOCYTOSIS 3+ (0-0); BAND NEUTROPHILS #M 13.5 10^3/ul (0.0-0.6); BAND NEUTROPHILS % (M) 57 % (0-4); BURR CELLS 1+ (0-0); GIANT THROMBO% (M) 1 % (0-0); LYMPHOCYTES #M 0.7 10^3/ul (0.8-2.9); LYMPHOCYTES % (M) 3 % (15-51); METAMYELOCYTES #M 1.1 10^3/ul (0.0-0.0); METAMYELOCYTES %M 5 % (0-0); MONOCYTE #M 0.7 10^3/ul (0.3-0.9); MONOCYTES % (M) 3 % (0-11); MYELOCYTES #M 0.2 10^3/ul (0.0-0.0); MYELOCYTES % (M) 1 % (0-0); PLATELET ESTIMATE SIG DECREASED; POIKILOCYTOSIS 3+ (0-0); POLYCHROMASIA 1+ (0-0); SCHISTOCYTES 1+ (0-0); SEG NEUT #M 10.6 10^3/ul (1.6-7.5); SEGMENTED NEUTROPHILS (M) % 31 % (39-77)
[2018-12-31] MEDS ORDERED: AZTREONAM 0.5 GM in SOD CHLORIDE 0.9% 50 ML IV (10:00)
[2018-12-31] MEDS: AZTREONAM 1 GM/NS (PMX) 50 ML IVPB (10:27)
[2018-12-31] MEDS: VANCOMYCIN 1.25 GM/NS 250 ML 250 ML IVPB (10:27)
[2018-12-31] MEDS ORDERED: PROPOFOL 100 ML (10:49)
[2018-12-31] MEDS ORDERED: NORepinephrine 8MG/250 ML (PMX 250 ML (11:11)
[2018-12-31] MEDS: PHENYLephrine 80 MG in DEXTROSE 5% 242 ML IV ×3 (13:00→23:53)
[2018-12-31] MEDS: NORepinephrine 32 MG in DEXTROSE 5% 218 ML IV (13:00)
[2018-12-31] MEDS ORDERED: IPRATROPIUM (NEB) 0.5 MG/2.5 ML AMP (13:34)
[2018-12-31] MEDS: IPRATROPIUM (HFA) 12.9 GM INHALER INH ×2 (13:42→20:04)
[2018-12-31] MEDS: DAKINS 0.0125%(1/40) 473 ML SOLUTION TP (14:22)
[2018-12-31] MEDS: PROPOFOL 100 ML IV ×3 (14:22→22:00)
[2018-12-31] MEDS: ARTIFICIAL TEARS 15 ML OPH BOTH EYES ×3 (14:26→20:22)
[2018-12-31] MEDS: OCULAR LUBRICANT 3.5 GM OPH OINT BOTH EYES ×2 (14:27→20:22)
[2018-12-31] MEDS ORDERED: TOBRAMYCIN IV PER PHARMACY XX (16:00)
[2018-12-31] MEDS: ALBUMIN HUMAN 25% 100 ML IV (16:09)
[2018-12-31 16:38] LABS: LACTIC ACID 7.6 mmol/L (0.5-2.0)
[2018-12-31 17:12] LABS: PROCALCITONIN 8.82 ng/mL (0.00-0.10)
[2018-12-31] MEDS: ACCU-CHEK XX ×2 (18:11→23:44)
[2018-12-31] MEDS: CASPOFUNGIN 70 MG in SOD CHLORIDE 0.9% 250 ML IVPB (18:18)
[2018-12-31] MEDS ORDERED: PHENYLephrine 20MG IN 250 ML 250 ML (19:17)
[2018-12-31] MEDS: TOBRAMYCIN 150 MG in DEXTROSE 5% 100 ML IVPB (20:21)
[2018-12-31] MEDS: ATORVASTATIN 20 MG TAB PO (20:22)
[2018-12-31] MEDS: VASOPRESSIN 60 UNIT in DEXTROSE 5% 57 ML IV (22:38)
[2019-01-01 00:31] LABS: AADO2 Arterial 348.9 mmHg (7.0-24.0); Allen Test ACCEPTAB; Arterial Base Excess -8.7 mmol/L (-3.0-3); Arterial Blood Gas Oxygen Sat 64.7 mmHG (95.0-100.0); Arterial COHb 0.2 % (0.0-3.0); Arterial Fraction of Oxyhgb 64.1 % (93.0-99.0); Arterial HCO3 17.5 mmol/L (22.0-26.0); Arterial MetHb 0.7 % (0.0-1.5); Blood Gas Mean Airway Pressure 24; MODE VENT - AC; Site Left Radial
[2019-01-01] MEDS: IPRATROPIUM (HFA) 12.9 GM INHALER INH ×4 (01:24→20:37)
[2019-01-01] MEDS: ALBUTEROL HFA 8 GM INHALER INH ×4 (01:25→20:37)
[2019-01-01] MEDS: morphine 2 MG INJ IV (02:19)
[2019-01-01] MEDS: COLLAGENASE 5 GM (UD JAR) TOP (02:19)
[2019-01-01 03:58] LABS: AADO2 Arterial 472.9 mmHg (7.0-24.0); Allen Test ACCEPTAB; Arterial Base Excess -8.7 mmol/L (-3.0-3); Arterial Blood Gas Oxygen Sat 84.4 mmHG (95.0-100.0); Arterial COHb 0.3 % (0.0-3.0); Arterial Fraction of Oxyhgb 83.7 % (93.0-99.0); Arterial HCO3 17.9 mmol/L (22.0-26.0); Arterial MetHb 0.5 % (0.0-1.5); Arterial pCO2 41.9 mmhg (35-45); MODE VENT - PC; Site Left Radial
[2019-01-01] MEDS: VASOPRESSIN 60 UNIT in DEXTROSE 5% 57 ML IV (05:34)
[2019-01-01] MEDS: PHENYLephrine 80 MG in DEXTROSE 5% 242 ML IV ×4 (05:34→19:23)
[2019-01-01] MEDS: NA BICARBONATE 8.4% 50 ML SYG IV (05:49)
[2019-01-01] MEDS: VANCOMYCIN HCL 250 MG/5ML POSYG GTB ×3 (05:49→18:24)
[2019-01-01] MEDS: ACCU-CHEK XX ×3 (06:20→18:24)
[2019-01-01] MEDS: FAMOTIDINE 20 MG TAB GTB (09:12)
[2019-01-01] MEDS: OCULAR LUBRICANT 3.5 GM OPH OINT BOTH EYES ×3 (09:12→21:39)
[2019-01-01] MEDS: ARTIFICIAL TEARS 15 ML OPH BOTH EYES ×4 (09:12→21:39)
[2019-01-01] MEDS: DEXTROSE 10% 1,000 ML IV (09:12)
[2019-01-01] MEDS: DAKINS 0.0125%(1/40) 473 ML SOLUTION TP (09:13)
[2019-01-01] MEDS: ZINC SULFATE 220 MG CAP GTB (09:13)
[2019-01-01] MEDS: MIDODRINE 5 MG TAB PO ×3 (09:13→18:24)
[2019-01-01] MEDS: AZTREONAM 1 GM/NS (PMX) 50 ML IVPB (10:20)
[2019-01-01] MEDS: NORepinephrine 32 MG in DEXTROSE 5% 218 ML IV (11:01)
[2019-01-01] MEDS: Metronidazole 500 MG in NS 100 ML IVPB ×2 (15:00→21:39)
[2019-01-01] MEDS: CASPOFUNGIN 50 MG in SOD CHLORIDE 0.9% 250 ML IVPB (18:22)
[2019-01-01] MEDS: EPOETIN ALFA-EPBX (ESRD) 10,000 UNIT/ML VIAL SC (18:23)
[2019-01-01] MEDS ORDERED: DEXTROSE 5% IVPB (20:00)
[2019-01-01] MEDS ORDERED: TOBRAMYCIN IVPB (20:00)
[2019-01-01] MEDS: ATORVASTATIN 20 MG TAB PO (21:40)
[2019-01-01] MEDS: PROPOFOL 100 ML IV (23:00)
[2019-01-02] MEDS: ACCU-CHEK XX ×3 (00:33→12:42)
[2019-01-02] MEDS: VANCOMYCIN HCL 250 MG/5ML POSYG GTB ×3 (00:33→12:42)
[2019-01-02] MEDS: PHENYLephrine 80 MG in DEXTROSE 5% 242 ML IV ×3 (00:38→12:38)
[2019-01-02] MEDS: IPRATROPIUM (HFA) 12.9 GM INHALER INH ×2 (01:39→09:24)
[2019-01-02] MEDS: ALBUTEROL HFA 8 GM INHALER INH ×2 (01:39→09:24)
[2019-01-02] MEDS: NORepinephrine 32 MG in DEXTROSE 5% 218 ML IV (02:47)
[2019-01-02] MEDS: VASOPRESSIN 60 UNIT in DEXTROSE 5% 57 ML IV (02:47)
[2019-01-02] MEDS: PROPOFOL 100 ML IV (05:51)
[2019-01-02] MEDS: Metronidazole 500 MG in NS 100 ML IVPB ×2 (05:51→13:08)
[2019-01-02 06:23] LABS: WHITE BLOOD COUNT 19.3 10^3/ul (4.8-10.8)
[2019-01-02 06:23] LABS: ABNORMAL IP MESSAGE 1; MEAN CORPUSCULAR HEMOGLOBIN 31.2 pg (29.0-33.0); MEAN CORPUSCULAR HGB CONC 30.9 g/dl (32.0-37.0); MEAN CORPUSCULAR VOLUME 100.9 fl (82.0-101.0); MEAN PLATELET VOLUME 14.2 fl (7.4-10.4); POSITIVE DIFF @See below; RED BLOOD COUNT 2.18 10^6/ul (4.70-6.10); RED CELL DISTRIBUTION WIDTH 23.1 % (11.5-14.5)
[2019-01-02 06:40] LABS: ADD MAN DIFF? YES; HEMOGLOBIN 6.8 g/dl (14.0-18.0); PLATELET COUNT 25 10^3/UL (140-415)
[2019-01-02 07:00] LABS: ANION GAP 13 (5-13); BLOOD UREA NITROGEN 54 mg/dl (7-20); CALCIUM 8.9 mg/dl (8.4-10.2); CARBON DIOXIDE 23 mmol/L (21-31); CHLORIDE 94 mmol/L (97-110); CREATININE 2.17 mg/dl (0.61-1.24); GLUCOSE 123 mg/dl (70-220); MAGNESIUM 1.9 mg/dl (1.7-2.5); PHOSPHORUS 2.5 mg/dl (2.5-4.9); POTASSIUM 3.5 mmol/L (3.5-5.1); SODIUM 130 mmol/L (135-144)
[2019-01-02] MEDS: ZINC SULFATE 220 MG CAP GTB (09:12)
[2019-01-02] MEDS: COLLAGENASE 5 GM (UD JAR) TOP (09:12)
[2019-01-02] MEDS: MIDODRINE 5 MG TAB PO ×2 (09:12→12:42)
[2019-01-02] MEDS: FAMOTIDINE 20 MG TAB GTB (09:12)
[2019-01-02] MEDS: DAKINS 0.0125%(1/40) 473 ML SOLUTION TP (09:13)
[2019-01-02] MEDS: ARTIFICIAL TEARS 15 ML OPH BOTH EYES ×2 (09:13→12:43)
[2019-01-02] MEDS: AZTREONAM 1 GM/NS (PMX) 50 ML IVPB (09:13)
[2019-01-02] MEDS: OCULAR LUBRICANT 3.5 GM OPH OINT BOTH EYES ×2 (09:14→12:43)
[2019-01-02] MEDS: DEXTROSE 10% 1,000 ML IV (09:19)
[2019-01-02 10:14] LABS: IMMEDIATE SPIN CROSSMATCH 1 1
[2019-01-02 10:19] LABS: ANISOCYTOSIS 3+ (0-0); BAND NEUTROPHILS #M 7.3 10^3/ul (0.0-0.6); BAND NEUTROPHILS % (M) 38 % (0-4); BURR CELLS 1+ (0-0); LYMPHOCYTES #M 0.7 10^3/ul (0.8-2.9); LYMPHOCYTES % (M) 4 % (15-51); MONOCYTE #M 0.3 10^3/ul (0.3-0.9); MONOCYTES % (M) 2 % (0-11); PLATELET ESTIMATE SIG DECREASED; POIKILOCYTOSIS 1+ (0-0); POLYCHROMASIA 1+ (0-0); SEG NEUT #M 12.2 10^3/ul (1.6-7.5); SEGMENTED NEUTROPHILS (M) % 56 % (39-77); SMUDGE%M 60 % (0-0)
[2019-01-02] MEDS: METOCLOPRAMIDE 10 MG INJ IV (12:42)
== END 2019-01-02 15:00 | disposition expired | DRG 870 ==
LOC: ICU 12-15 15:26 → 6WM 22:52 → E/R 20:44 → 6WM 12-18 16:51
PROVIDERS: Internal Medicine
PROC: 5A1955Z Respiratory Ventilation, Greater than 96 Consecutive Hours (ICD-10-PCS; 2018-12-05)
PROC: 0DH63UZ Insertion of Feeding Device into Stomach, Percutaneous Approach (ICD-10-PCS; 2018-12-05)
PROC: 30283B1 Transfusion of Nonautologous 4-Factor Prothrombin Complex Concentrate into Vein, Percutaneous Approach (ICD-10-PCS; 2018-12-05)
PROC: 5A1D70Z Performance of Urinary Filtration, Intermittent, Less than 6 Hours Per Day (ICD-10-PCS; 2018-12-08)
PROC: 05PYX3Z Removal of Infusion Device from Upper Vein, External Approach (ICD-10-PCS; 2018-12-18)
PROC: 02HV33Z Insertion of Infusion Device into Superior Vena Cava, Percutaneous Approach (ICD-10-PCS; principal; 2018-12-25)
PROC: 0JH63XZ Insertion of Tunneled Vascular Access Device into Chest Subcutaneous Tissue and Fascia, Percutaneous Approach (ICD-10-PCS; 2018-12-25)
PROC: 02H633Z Insertion of Infusion Device into Right Atrium, Percutaneous Approach (ICD-10-PCS; 2018-12-31)
PROC: 5A12012 Performance of Cardiac Output, Single, Manual (ICD-10-PCS; 2019-01-02)
DX: A41.9 Sepsis, unspecified organism (principal); T80.212A Local infection due to central venous catheter, initial encounter; L89.154 Pressure ulcer of sacral region, stage 4; I21.4 Non-ST elevation (NSTEMI) myocardial infarction; R65.21 Severe sepsis with septic shock; N18.6 End stage renal disease; J15.6 Pneumonia due to other Gram-negative bacteria; G92 Toxic encephalopathy; G93.1 Anoxic brain damage, not elsewhere classified; I12.0 Hypertensive chronic kidney disease with stage 5 chronic kidney disease or end stage renal disease; J96.11 Chronic respiratory failure with hypoxia; L03.313 Cellulitis of chest wall; L97.119 Non-pressure chronic ulcer of right thigh with unspecified severity; J90 Pleural effusion, not elsewhere classified; A04.71 Enterocolitis due to Clostridium difficile, recurrent; Z99.11 Dependence on respirator [ventilator] status; R40.3 Persistent vegetative state; E87.2 Acidosis; E86.0 Dehydration; R13.10 Dysphagia, unspecified; I25.10 Atherosclerotic heart disease of native coronary artery without angina pectoris; D63.1 Anemia in chronic kidney disease; E11.22 Type 2 diabetes mellitus with diabetic chronic kidney disease; N40.1 Benign prostatic hyperplasia with lower urinary tract symptoms; R33.8 Other retention of urine; R31.9 Hematuria, unspecified; E11.622 Type 2 diabetes mellitus with other skin ulcer; L08.9 Local infection of the skin and subcutaneous tissue, unspecified; B95.62 Methicillin resistant Staphylococcus aureus infection as the cause of diseases classified elsewhere; E87.70 Fluid overload, unspecified; D69.6 Thrombocytopenia, unspecified; B96.89 Other specified bacterial agents as the cause of diseases classified elsewhere; Z93.1 Gastrostomy status; Z93.0 Tracheostomy status; Z86.74 Personal history of sudden cardiac arrest; Z99.2 Dependence on renal dialysis
CPT/HCPCS: 36415; 36430; 36558; 36600; 71045; 73630-LT; 76604; 76942; 80048; 80053; 80202; 82040; 82728; 82803; 82962; 83036; 83540; 83605; 83615; 83735; 84100; 84145; 84484; 85014; 85018; 85025; 85610; 85730; 86850; 86900; 86901; 86920; 87040-91; 87070; 87075; 87081; 87086; 87102; 87340; 88104; 88305; 89051; 90935; 93005; 93971; 94002; 94003; 94640; 94664; 96374; 96375; 99285-25